=== PATIENT | female | born 1930 | race Caucasian/White ===

== ENCOUNTER → 2017-01-14 07:49 | Outpatient (CLI) | payer MEDICARE, OTHER ==
[2012-06-28 01:31] VITALS: BMI 25.4
== END ==
LOC: D.MAMMO 07:49
DX: Z12.31 Encounter for screening mammogram for malignant neoplasm of breast (principal)

== ENCOUNTER 2017-12-06 10:49 | Emergency (ER) | payer MEDICARE, OTHER ==
[~2017-12-06] VITALS: Ht 167.6 cm; Wt 55.9 kg
[2017-12-06 10:58] VITALS: Ht 167.6 cm; Wt 55.9 kg
[2017-12-06] MEDS ORDERED: MACRODANTIN50 MG PO (11:00)
[2017-12-06] MEDS ORDERED: CALAN SR240 MG PO (11:00)
[2017-12-06] MEDS ORDERED: DIOVAN160 MG PO (11:00)
[2017-12-06] MEDS ORDERED: GABAPENTIN100 MG PO (11:01)
[2017-12-06] MEDS ORDERED: PROTONIX40 MG PO (11:01)
[2017-12-06] MEDS ORDERED: ALDACTONE25 MG PO (11:01)
[2017-12-06] MEDS ORDERED: RELAFEN500 MG PO (11:01)
[2017-12-06] MEDS ORDERED: BAYER CHEWABLE81 MG PO (11:01)
[2017-12-06 11:19] LABS: BASOPHILS 0.6 % (0-2); EOSINOPHILS 1.2 % (0-7); HEMATOCRIT 38.9 % (36.0-48.0); HEMOGLOBIN 13.4 g/dL (12-16); IMMATURE GRANULOCYTES 0.2 % (0-5); LYMPHOCYTES 26.3 % (15-50); MCH 32.1 pg (26.0-34.0); MCHC 34.4 g/dL (31.0-37.0); MCV 93.1 fL (80.0-100.0); MONOCYTES 9.6 % (2-11); NEUTROPHILS 62.1 % (40-80); PLATELET COUNT 255 10x3/uL (130-400); RBC 4.18 10x6/uL (4.00-5.40); RDW 12.5 % (11.5-14.5); WBC 6.5 10x3/uL (4.8-10.8)
[2017-12-06 11:27] LABS: APTT 25.4 SECONDS (22.8-39.4); INR 0.96 (0.85-1.17); PROTIME 12.4 SECONDS (11.6-15.0)
[2017-12-06 11:31] LABS: ALBUMIN 3.6 g/dL (3.4-5.0); ALKALINE PHOSPHATASE 80 U/L (46-116); ALT (SGPT) 11 U/L (10-68); BILIRUBIN - TOTAL 0.65 mg/dL (0.2-1.3); CALC OSMOLALITY 269 mosm/kg (275-300); CALCIUM 10.3 mg/dL (8.5-10.1); CARBON DIOXIDE 29.5 mmol/L (21.0-32.0); CHLORIDE - SERUM 99 mmol/L (98-107); CREATININE - SERUM 1.1 mg/dL (0.6-1.3); GLUCOSE 95 mg/dL (74-106); POTASSIUM - SERUM 4.5 mmol/L (3.5-5.1); PROTEIN - SERUM 7.2 g/dL (6.4-8.2); SODIUM 135 mmol/L (136-145); UREA NITROGEN 12 mg/dL (7-18); eGFR NON AFRICAN AMERICAN 50 mL/min (90-120)
[2017-12-06 11:43] LABS: CREATINE KINASE 43 UL (21-215); PRO BNP 345 pg/mL (0-450)
[2017-12-06 11:45] LABS: TROPONIN-I < 0.017 ng/mL (0.000-0.060)
[2017-12-06 12:12] LABS: CKMB 1.3 U/L (0.0-3.6)
[2017-12-06 13:20] VITALS: BP 130/90
== END 2017-12-06 13:21 | disposition home or self-care (01) ==
LOC: D.ER 10:49
PROVIDERS: Emergency Medicine
DX: R07.89 Other chest pain (principal)

== ENCOUNTER → 2018-01-29 23:08 | Outpatient (CLI) | payer MEDICARE, OTHER ==
[2017-12-06 10:58] VITALS: BMI 19.9
[~2018-01-29 23:08] MED LIST: ALDACTONE25 MG PO; BAYER CHEWABLE81 MG PO; CALAN SR240 MG PO; DIOVAN160 MG PO; GABAPENTIN100 MG PO; MACRODANTIN50 MG PO; PROTONIX40 MG PO; RELAFEN500 MG PO
== END | disposition home or self-care (01) ==
LOC: D.MAMMO 11:00
DX: Z12.31 Encounter for screening mammogram for malignant neoplasm of breast (principal)